=== PATIENT | female | born 1990 | race Caucasian/White ===

== ENCOUNTER 2019-11-27 16:21 | Outpatient (REF) | payer BC, SELFPAY ==
--- NOTE | 2019-11-27 15:25 | PAPFT_PTH ---
PATIENT: Weston Connell LOC: [facility] U#:[id number] AGE/SX: 29/F ROOM: RE11/27/[address]: Chasidy Portillo DO : 1990 BED: DIS: 11/27/2019 SPEC #: [id number] RECD: 11/27/19 16:56 STATUS: RASHMI REQ #: [id number] TATIANA: 11/27/19 15:[address]: Chasidy Portillo DEPT: [facility] Cytology RECD BY: Sury Perry Tissues: 1 - CX/ENDOCX FOR PAP SMEARS Procedures: PAP THIN PREP/[facility] Screening HPV DNA PROBE Comments: [id number]
== END 2019-11-27 16:41 ==
LOC: LBN 16:21
PROVIDERS: Visit Provider Obstetrics & Gynecology
DX: Z12.4 Encounter for screening for malignant neoplasm of cervix (principal); Z11.51 Encounter for screening for human papillomavirus (HPV)
CPT/HCPCS: 88142; 87624

== ENCOUNTER 2022-03-11 01:48 | Outpatient (CLI) | payer BC, SELFPAY ==
[2022-03-11 13:38] LABS: ALT 21 U/L (14-59); AST 13 U/L (15-37); Albumin 4.1 g/dL (3.4-5.0); Alkaline Phosphatase 68 U/L (46-116); Anion Gap 5.5 mmol/L (3-11); BUN 10 mg/dL (7-18); Bilirubin, Total 0.2 mg/dL (0.2-1.0); CO2 30.5 mmol/L (21.0-32.0); CREATININE 0.7 mg/dL (0.55-1.02); Calcium 9.2 mg/dL (8.5-10.1); Chloride 103 mmol/L (98-107); Estimated GFR 117.77 (mL/min/1.73m2); Glucose 84 mg/dL (74-106); Potassium 3.9 mmol/L (3.5-5.1); Sodium 139 mmol/L (136-145); TSH (W/Ref FT4) 1.36 uIU/mL (0.36-3.74); Total Protein 7.6 g/dL (6.4-8.2)
[2022-03-11 20:40] LABS: FSH 5.9 mIU/mL (See Note)
[2022-03-11 20:48] LABS: LH 2.1 mIU/mL (See Note); Prolactin 4.3 ng/mL (See Note)
== END 2022-03-11 01:49 | disposition home or self-care (01) ==
LOC: LBO 01:49
PROVIDERS: PCP Nurse Practitioner Women's Health; Visit Provider Obstetrics & Gynecology
DX: N92.3 Ovulation bleeding (principal); N93.8 Other specified abnormal uterine and vaginal bleeding
CPT/HCPCS: 36415; 80053; 83001; 83002; 84146; 84443

== ENCOUNTER 2024-10-28 13:23 | Outpatient (CLI) | payer SELFPAY ==
[2024-10-28 13:05] LABS: HCG Quant, Pregnancy 1 mIU/mL (1-3)
[2024-10-29 22:18] LABS: Progesterone 0.4 ng/mL (See Table)
== END 2024-10-28 13:24 | disposition home or self-care (01) ==
PROVIDERS: PCP Nurse Practitioner Family; Visit Provider Nurse Practitioner Family
DX: N97.8 Female infertility of other origin (principal)
CPT/HCPCS: 36415; 84144; 84702